=== PATIENT | female | born 1945 | race Caucasian/White ===

== ENCOUNTER → 2017-07-04 | Outpatient (REF) | payer MEDICARE | LOC: M LAB REF 17:20 | DX: C20 Malignant neoplasm of rectum (principal) | CPT/HCPCS: 82378 ==

== ENCOUNTER → 2017-07-04 | Outpatient (CLI) | payer MEDICARE | LOC: M ONCR 09:56 | DX: C20 Malignant neoplasm of rectum (principal) | CPT/HCPCS: 82378 ==

== ENCOUNTER → 2017-07-26 | Outpatient (REF) | payer MEDICARE ==
[2017-07-26 14:05] LABS: INR 1.05; PROTHROMBIN TIME 13.9 SECONDS (12.4-14.5)
== END ==
LOC: M LAB REF 13:34
DX: C20 Malignant neoplasm of rectum (principal)
CPT/HCPCS: 85610

== ENCOUNTER → 2017-08-06 | Outpatient (CLI) | payer MEDICARE ==
[~2017-08-06] MED LIST: LIDOCAINE 2% MDV 20 ML VIAL As Ordered; ceFAZolin 1GM INJ (J0690 PER 500MG) As Ordered
== END | disposition home or self-care (01) ==
LOC: M IRPRO 10:16
DX: C20 Malignant neoplasm of rectum (principal); C78.7 Secondary malignant neoplasm of liver and intrahepatic bile duct
CPT/HCPCS: 36561

== ENCOUNTER → 2017-08-28 | Outpatient (REF) | payer MEDICARE ==
[2017-08-30 10:50] LABS: CARCINOEMBRYONIC ANTIGEN 453.5 NG/ML (<2.5)
== END ==
LOC: M LAB REF 15:24
DX: C20 Malignant neoplasm of rectum (principal); C78.7 Secondary malignant neoplasm of liver and intrahepatic bile duct
CPT/HCPCS: 82378

== ENCOUNTER → 2017-11-04 | Outpatient (REF) | payer MEDICARE ==
[2017-11-05 08:21] LABS: CARCINOEMBRYONIC ANTIGEN 4.7 NG/ML (<2.5)
== END ==
LOC: M LAB REF 13:14
DX: C20 Malignant neoplasm of rectum (principal); C78.7 Secondary malignant neoplasm of liver and intrahepatic bile duct
CPT/HCPCS: 82378

== ENCOUNTER → 2017-11-18 | Outpatient (REF) | payer MEDICARE ==
[2017-11-20 07:32] LABS: CARCINOEMBRYONIC ANTIGEN 3.5 NG/ML (<2.5)
== END ==
LOC: M LAB REF 13:49
DX: C20 Malignant neoplasm of rectum (principal)
CPT/HCPCS: 82378

== ENCOUNTER → 2018-02-20 | Outpatient (CLI) | payer MEDICARE | LOC: M ONCR 12:56 | DX: C21.8 Malignant neoplasm of overlapping sites of rectum, anus and anal canal (principal) | CPT/HCPCS: G0463 ==

== ENCOUNTER → 2018-03-24 | Outpatient (RCR) | payer MEDICARE ==
[2018-02-26 13:19] LABS: HEMATOCRIT 38.3 % (36.0-47.0); HEMOGLOBIN 12.2 g/dl (12.0-15.5); MEAN CORPUSCULAR HEMOGLOBIN 30.3 pg (27.0-33.0); MEAN CORPUSCULAR HGB CONC 31.9 g/dl (32.0-36.5); MEAN CORPUSCULAR VOLUME 95.3 fl (80.0-96.0); PLATELET COUNT, AUTOMATED 218 10^3/uL (150-450); RED BLOOD COUNT 4.02 10^6/uL (4.00-5.40); WHITE BLOOD COUNT 4.6 10^3/uL (4.0-10.0)
--- NOTE | 2018-02-28 10:39 | RADONC ---
RADIATION ONCOLOGY SIMULATION NOTE DATE: 02/26/2018 CHART NUMBER: [id number] Ms. Lin was taken to the CT scan for CT simulation of her rectal field. CT was accomplished without difficulty or discomfort. Radiation treatment planning is underway and radiation treatments will begin subsequently. An immobilization device was created and will be used throughout the course of treatment. It was created without difficulty or discomfort. I was physically present throughout the course CT simulation.
--- NOTE | 2018-03-11 08:06 | RADONC ---
RADIATION ONCOLOGY PROGRESS NOTE DATE: 03/10/2018 CHART #: [id number] Ms. Lin is presently at a dose of 900 cGy to her rectum and is tolerating treatments quite well at this point with no complaints related to her radiation therapy. She is having no rectal or bone pain. REVIEW OF SYSTEMS: The patient's review of systems is noncontributory. Denies nausea, vomiting, fevers, chills, night sweats, diplopia, headaches, anxiety or depression, anorexia, weight loss, visual disturbances, chest pain, urinary or bowel difficulties, bone pain, or neurological problems. PHYSICAL EXAMINATION: The patient's skin is in excellent condition with no evidence of radiation change present. There is no moist or dry desquamation. The remainder of her physical exam remains unchanged. Ms. Lin is tolerating treatments quite well and radiation will continue as scheduled.
--- NOTE | 2018-03-21 12:23 | RADONC ---
RADIATION ONCOLOGY NOTE DATE: 03/19/2018 CHART #: [id number] DIAGNOSIS: Rectal cancer. STAGE: IV, [id number]. Miss Lin with a diagnosis of rectal cancer is currently receiving local regional radiotherapy and her dose to date is 1800 cGy of an anticipated 4500 cGy. She appears to be tolerating her radiotherapy reasonably well, although over the last several days she claims that she has experienced increased rectal discharge. On occasions the rectal discharge is black and she did call her affiliated physician, Dr. Mckenzie, for advice. She claims that the frequent bowel movements which she is now experiencing have decreased some with taking Imodium and instead of black stool she is now having more brownish stools. She does not complain of any skin issues and denies nausea or vomiting. The remainder of the review of systems is virtually noncontributory and she denies any anxiety, depression, anorexia, weight loss, or visual disturbances. PHYSICAL EXAMINATION: The skin within the irradiated volume shows no evidence of erythema and certainly no focal desquamation. There is no palpable peripheral lymphadenopathy. The remainder of the physical examination is unchanged. IMPRESSION: Tolerating therapy well with increased frequency of defecation with on several occasions the discharge blackened. PLAN: Continue using the Imodium on a p.r.n. basis as per the advice of Dr. Culver.
[~2018-03-24] MED LIST changes: +ACET65TA OR; +ASPI81TA83 OR; +ATEN50TA2 OR; +ATEN50TA2 PO; +IBUP200C25 PO; +LEVS0.123 PO; -LIDOCAINE 2% MDV 20 ML VIAL As Ordered; +LOMO2.5T PO; +OXYC-517 PO; +PERC7.5T8 OR; +ZOFR8TAB24 PO; -ceFAZolin 1GM INJ (J0690 PER 500MG) As Ordered
--- NOTE | 2018-03-26 14:11 | RADONC ---
RADIATION ONCOLOGY PROGRESS NOTE DATE: 03/24/2018 CHART NUMBER: [id number] PROGRESS NOTE: Ms. Lin is presently at a dose of 2160 cGy to her rectum and overall is tolerating her treatments with some discomfort. She reports some rectal pressure. She has also had some episodes of loose bowel movements. She did take two Imodium, which cause constipation, and she does not wish to repeat that. She has no urinary problems or other difficulties at this time. REVIEW OF SYSTEMS: The patient's review of systems is positive for rectal pressure and discomfort but is otherwise noncontributory. Denies nausea, vomiting, fevers, chills, night sweats, diplopia, headaches, anxiety or depression, anorexia, weight loss, visual disturbances, chest pain, urinary or bowel difficulties, bone pain, or neurological problems. PHYSICAL EXAMINATION: The patient's skin overall is in good condition with no evidence of moist or dry desquamation. The remainder of physical exam remains unchanged. Ms. Lin is tolerating her treatments with some discomfort and radiation will continue as scheduled. I have offered to give her a short treatment break if she wishes. edited: 03/26/2018 1433 tkf MTDD
== END ==
LOC: M ONCR 02-26 12:59
PROVIDERS: ATTEND Radiology Radiation Oncology
DX: C20 Malignant neoplasm of rectum (principal)

== ENCOUNTER 2018-04-22 14:15 | Outpatient (RCR) | payer MEDICARE ==
--- NOTE | 2018-04-08 07:27 | RADONC ---
RADIATION ONCOLOGY PROGRESS NOTE DATE: 04/07/2018 CHART NUMBER: [id number] Ms. Lin is presently at a dose of 3060 cGy to her rectum and overall is tolerating her treatments fairly well. She continues to have unusual GI problems with loose bowel movements versus diarrhea but they appear to have improved significantly. She is no longer taking Xeloda. The patient's review of systems are basically unchanged with some unusual changes in her bowel movements. On physical exam or skin is in good condition with no evidence of moist or dry desquamation. The remainder of her physical exam remains unchanged. Ms. Lin is tolerating treatments quite well and radiation will continue as scheduled.
--- NOTE | 2018-04-15 11:57 | RADONC ---
RADIATION ONCOLOGY PROGRESS NOTE DATE: CHART NUMBER: [id number] Ms. Lin came in today for reevaluation. She is thus far at a dose of 3420 cGy and was last treated on 04/09/2017. The patient reports that she is now on Lomotil and continues to have explosive uncontrolled diarrhea. I reviewed her blood tests and electrolytes and they are generally within acceptable limits and stable over the past several weeks. She reports that her stools are foul-smelling as well. She has not taken any Xeloda in over 2 weeks. At this point, I am now ordering a GI panel to evaluate for Clostridium (C.) difficile and other issues. She remains at rest from radiation at this point. I have recommended that she does not restart Xeloda until we get to the bottom of what is going on. The patient's stool sample was quite foul smelling and overall rather nasty. We await the results of this study. In the meantime, the patient is coming back to us on for reevaluation once again.
--- NOTE | 2018-04-21 15:27 | RADONC ---
RADIATION ONCOLOGY PROGRESS NOTE: DATE: 04/21/2018 CHART NUMBER: [id number] Ms. Lin had thus far been at a dose of 3420 cGy and was last treated on 04/09/2017. The patient was placed on rest for continued complaints of diarrhea. We ordered a GI panel which was done on 04/14/2018 and was negative for multiple studies. The sample however was quite foul smelling and looked nasty. The patient came in today complaining of continued diarrhea. She has now been off chemotherapy for weeks and has had multiple breaks in her radiation. I ordered another stool sample to be taken today and we will try again. In addition, I have instructed the patient she must contact her primary care physician since this diarrhea is outside my scope of practice. I have also asked her to contact her medical oncologist and discuss this as well. At this point, the patient only has six treatments or so left and I have told her either she needs to finish this up or we cancelled treatment. This is palliative in nature and we do not wish to be causing her problems. I do not believe this local radiation to her rectum is causing all of this, especially after personally seeing the patient's stool sample. This is not the normal appearance for any radiation induced issues. The patient has agreed to complete her last few treatments so that future palliative surgery can be scheduled in approximately 2 months. She is continuing to withhold her Xeloda chemotherapy. Therefore, we are treating the patient today and we will continue to follow her closely. Once again I have ordered a new stool sample and she will be followed by her primary care physician and medical oncologist. I suspect if this is related to her treatments, it would be closely related to her systemic therapy rather than her local radiation field.
== END 2018-04-24 ==
LOC: M ONCR 14:15
PROVIDERS: ATTEND Radiology Radiation Oncology
DX: C20 Malignant neoplasm of rectum (principal)

== ENCOUNTER 2018-05-01 14:25 | Outpatient (RCR) | payer MEDICARE ==
--- NOTE | 2018-04-29 13:32 | RADONC ---
RADIATION ONCOLOGY PROGRESS NOTE DATE: 04/28/2018 CHART NUMBER: [id number] Ms. Lin is presently at a dose of 3960 cGy to her rectum and is continuing to complain of diarrhea. She reports it is not as bad as it has been. The patient's review of systems is positive for loose bowel movements but is otherwise noncontributory. She denies nausea, vomiting, fevers, chills, night sweats, diplopia, headaches, anxiety or depression, anorexia, weight loss, visual disturbances, chest pain, urinary or bowel difficulties, bone pain, or neurological problems. PHYSICAL EXAMINATION: The patient's skin is in good condition with no evidence of moist or dry desquamation. The remainder of her physical exam remains unchanged. Ms. Lin is tolerating her treatments with diarrhea and has decided to continue radiation at this point. She has discontinued the systemic therapy. Radiation is approaching completion and she is then considering palliative colostomy.
[~2018-05-01 14:25] MED LIST changes: +HYOS0.1258 PO
[2018-05-01] MEDS ORDERED: LEVS0.123 PO (15:57)
--- NOTE | 2018-05-05 12:36 | RADONC ---
RADIATION ONCOLOGY TREATMENT SUMMARY DATE: 05/01/2018 CHART NUMBER: [id number] DIAGNOSIS: Rectal cancer. STAGE: IV, [id number]. ECOG PERFORMANCE STATUS: 0 TREATMENT SUMMARY: Ms. Orozco is a very pleasant 73-year-old white female with the diagnosis of stage IV, [id number], moderately differentiated adenocarcinoma of the rectum who presented to us for consideration of preoperative radiation therapy for palliative treatment of her rectal malignancy. We treated the patient to her rectum for a total dose of 4500 cGy delivered in 25 fractions of 180 cGy each over 57 elapsed days from 03/04/2018 through 05/01/2017. The patient's rectum was treated on a linear accelerator utilizing a 15 MV photon beam via 3-D conformal technique with left to right lateral and posterior marquez. We initially treated the patient with concomitant Xeloda systemic therapy. Unfortunately, the patient had a very difficult time with her radiation and had bowel issues including foul-smelling loose bowel movements and gas from the beginning of her treatment. The chemotherapy was discontinued and the patient ended up completing therapy radiation alone. Multiple stool samples were tested for various issues, including C diff and all were negative. I have set the patient up to see me again in 1 month for further followup. She is also scheduled to be seen by her surgeon for rectal resection in approximately 8 weeks or so. The patient has my cell phone number and has been instructed to call me if she has any issues in the meantime. cc: MD Jf Meyer MD Shirley Tuttle-Malone, DO Jack Alan Ziegler, MD
== END 2018-05-22 ==
LOC: M ONCR 14:25
PROVIDERS: ATTEND Radiology Radiation Oncology
DX: C20 Malignant neoplasm of rectum (principal)

== ENCOUNTER → 2018-06-04 | Outpatient (CLI) | payer MEDICARE ==
--- NOTE | 2018-06-09 10:25 | RADONC ---
RADIATION ONCOLOGY FOLLOWUP NOTE DATE: 06/04/2018 CHART #: [id number] DIAGNOSIS: Rectal cancer. STAGE: IV, [id number]. ECOG PERFORMANCE STATUS: 0. FOLLOWUP NOTE: Ms. Lin is a very pleasant 73-year-old white female with the diagnosis of a stage IV, [id number], moderately differentiated adenocarcinoma of the rectum who is presenting to us today for routine followup visit 1 month post completion of preoperative radiation therapy to her pelvis. The patient presents today reporting that generally she is doing better. She continues to have some loose bowel movements, but they have improved since completion of treatment. The patient reports that she is awaiting insurance authorization and has been seen by Dr. Martinez for scheduling of her surgery in [place]. The patient reports that his surgery should be sometime next month. She is also continuing her close followup with her other physicians. The patient's review of systems is positive for loose bowel movements but is otherwise noncontributory. Denies nausea, vomiting, fevers, chills, night sweats, diplopia, headaches, anxiety or depression, anorexia, weight loss, visual disturbances, chest pain, urinary or bowel difficulties, bone pain, or neurological problems. PHYSICAL EXAMINATION: The patient is a well-developed, well-nourished, 73-year-old female in no acute distress. HEENT exam is normocephalic, atraumatic. Extraocular movements are intact. There is no palpable cervical, supraclavicular, infraclavicular, axillary, or inguinal lymphadenopathy present. Lungs are clear to auscultation and percussion. Heart has a regular rate and rhythm. Abdomen is benign with no hepatosplenomegaly, masses, or tenderness. Rectal examination deferred at this time. Skeletal examination reveals no tenderness to pressure or percussion of the bony skeleton. Extremities reveal no clubbing, cyanosis, or edema. Neurologic exam is grossly intact, as is the remainder of the physical examination. ASSESSMENT: The patient is scheduled for surgery next week with Dr. Martinez. She will continue her close followup through that office. She will also continue her follow up with her medical oncologist and other physicians in the meantime. In light of this, I am discharging her from our followup except on a p.r.n. basis. cc: MD Jf Meyer MD Shirley Tuttle-Malone, DO Otoniel Ishmael Savannah, MD
== END ==
LOC: M ONCR 14:23
PROVIDERS: ATTEND Radiology Radiation Oncology
DX: C20 Malignant neoplasm of rectum (principal)

== ENCOUNTER 2019-04-21 07:30 | Inpatient (IN) | payer MEDICARE ==
--- NOTE | 2019-04-14 10:54 | HPE ---
DATE OF ADMISSION: 04/21/2019 ATTENDING PHYSICIAN: Dr. Isaiah Cruz ADMISSION DIAGNOSIS: Back pain and pain down her right leg. HISTORY: This is a pleasant 74-year-old female patient with progressively worsening back pain and pain down her right leg. She has failed to improve with conservative management to include physical therapy and activity modification. She has elected for surgery for continued symptoms. She has had a trial of NSAIDs. She has been consented by Dr. Cruz for right unilateral laminectomy at L3-4. X-rays and MRI are consistent with spinal stenosis, primary at L3-4. ALLERGIES: NO KNOWN DRUG ALLERGIES. CURRENT MEDICATIONS: Atenolol 50 mg 1 tablet at bedtime. MEDICAL CONDITIONS: Include bilateral knee osteoarthritis (OA), abdominal aortic aneurysm (AAA) that is treated with serial scans, glucose intolerance, hypertension, elevated lipids, neutropenia secondary to her prior chemotherapy, history of rectal adenocarcinoma, seasonal allergies, thyromegaly. PRIOR SURGERY: Includes bilateral tubal ligation, liver biopsy, colon resection, and colostomy placement. She also has had carpal tunnel release bilaterally. FAMILY HISTORY: Include hypertension, elevated cholesterol and arthritis. SOCIAL HISTORY: She does not smoke. She does not use alcohol. She is retired. REVIEW OF SYSTEMS: Denies fever or chills. Denies chest pain, shortness breath or cough. Denies difficulty breathing. Denies abdominal pain. Denies nausea or vomiting. Has persistent pain with weightbearing activities and walking that radiates mainly to her right ware. PHYSICAL EXAMINATION: Reveals an alert well-nourished, well-developed female patient. She ambulates with a normal gait. Her gait is not wide-based. Her mood and affect are appropriate. There is some mild tenderness along the lumbar spine without step offs or deviations. The skin around the back is intact. No erythema, edema or ecchymosis. Straight leg raise testing is negative. Deep tendon reflexes are absent at knees and absent at the ankles. No irritability with hip range of motion. Lungs are clear to auscultation without rales or wheeze. Heart: Regular rate and rhythm. Abdomen: Bowel sounds are present. Current blood pressure 115/69, respirations 16, pulse 72, height 5 feet 1 inch, weight 168 pounds, temperature 97.7. LABORATORY DATA: Include hemoglobin of 13.0, glucose 95, BUN 27, creatinine 0.7, sodium 141, potassium 4.4. CT of the thorax notable for no acute cardiac or pulmonary process noted. EKG sinus rhythm. IMPRESSION: Symptomatic lumbar spinal stenosis L3-4. PLAN: The patient has been consented by Dr. Cruz for a unilateral laminectomy at L3-4 to the right side. We reviewed the postoperative instructions to include, but not limited to being nothing by mouth (n.p.o.) after midnight, length of stay and the importance to stop her NSAIDs. She will follow her primary's recommendations for her medications. She is not currently taking any anticoagulants. She understands her preoperative instructions.
[~2019-04-21] VITALS: Ht 160 cm; Wt 74.8 kg
[~2019-04-21 07:30] MED LIST changes: +CelecoXIB (CeleBREX) 100 MG CAP PO ONE; +GABAPENTIN 300 MG CAP PO ONE; +LR 1,000 ML IV SCH; +PERCOCET 5MG/325MG TAB PO ONE; +ceFAZolin SOD 2 GM in IV 1 EA IV ONE
[2019-04-21] MEDS ORDERED: fentaNYL 250 MCG/5 ML INJECTION (J3010) As Ordered ONE (19:36)
[2019-04-21] MEDS ORDERED: propofoL 200 MG/20 ML VIAL As Ordered ONE (19:36)
[2019-04-21] MEDS ORDERED: LIDOCAINE 2% INJ 100 MG/5 ML SDV (FOR ANES.) As Ordered ONE (19:36)
[2019-04-21] MEDS ORDERED: MIDAZOLAM INJ 2 MG/2 ML VIAL (J2250) As Ordered ONE (19:37)
[2019-04-21] MEDS ORDERED: ROCURONIUM BROMIDE 50 MG/5 ML VIAL As Ordered ONE ×2 (19:37→21:07)
[2019-04-21] MEDS ORDERED: dexameTHASONE 4 MG/ML 1ML VIAL (J1100) As Ordered ONE (19:37)
[2019-04-21] MEDS ORDERED: BUPIVACAINE/EPIN 0.25% 30 ML VIAL As Ordered ONE (20:00)
[2019-04-21] MEDS ORDERED: THROMBIN SOLN 20,000 UNITS KIT As Ordered ONE (20:00)
[2019-04-21] MEDS ORDERED: BACITRACIN PWD 50,000 UNITS VIAL As Ordered ONE (20:00)
[2019-04-21] MEDS ORDERED: LACRILUBE (AKWA TEARS) OPHTH OINT 3.5 GM As Ordered ONE (20:27)
[2019-04-21] MEDS ORDERED: ePHEDrine SULFATE 25 MG/5 ML(5MG/ML) SYRINGE As Ordered ONE (20:28)
[2019-04-21] MEDS ORDERED: VASOPRESSIN INJ 20 UNITS/ML VIAL As Ordered ONE (20:37)
[2019-04-21] MEDS ORDERED: PHENYLEPHRINE INJ 10MG/ML VIAL (J2370) As Ordered ONE (20:58)
[2019-04-21] MEDS ORDERED: SUGAMMADEX SODIUM 500 MG/5 ML VIAL (BRIDION) As Ordered ONE (22:45)
[2019-04-21] MEDS ORDERED: ONDANSETRON 4MG/2ML VIAL (J2405) As Ordered ONE (22:45)
[2019-04-21] MEDS ORDERED: LR 1,000 ML IV SCH (23:45)
[2019-04-21] MEDS ORDERED: METOCLOPRAMIDE INJ 10MG/2ML VIAL (J2765) IV PRN (23:45)
[2019-04-21] MEDS ORDERED: oxyCODONE 5MG TAB PO PRN (23:45)
[2019-04-21] MEDS ORDERED: ONDANSETRON 4MG/2ML VIAL (J2405) IV PRN (23:45)
[2019-04-21] MEDS ORDERED: fentaNYL 100 MCG/2 ML INJECTION (J3010) IV PRN (23:45)
[2019-04-21] MEDS ORDERED: HYDROMORPHONE HCL 0.5 MG/ 0.5 ML SYRINGE (J1170 PER 1) IV PRN (23:45)
--- NOTE | 2019-04-21 23:53 | CR.PDOC ---
General Date of Consultation: Apr 21, 2019 Referring Provider: Isaiah Cruz MD Primary Care Physician: Ama Rush DO [facility] Attending Physician: TITA CALDWELL MD Consultation TIME OF SERVICE: 11:50 PM REASON FOR CONSULTATION: Perioperative care HISTORY OF PRESENT ILLNESS: This is a 74-year-old female who had a laminectomy today to manage progressively worsening chronic back pain that did not improve with conservative measures. I evaluated the patient in the post operative care unit. She reported that her back pain was well-controlled and she had no acute complaints. REVIEW OF SYSTEMS: 12 point review of systems negative except as listed in HPI PAST MEDICAL/ SURGICAL HISTORY: Status post L3-L4 laminectomy and April 21 Severe OA affecting both knees Chronic hypertension Pre-Diabetes Dyslipidemia AAA History of stage IV rectal cancer status post colectomy with colostomy placement status post bilateral tubal ligation. Status post carpal tunnel surgery bilaterally SOCIAL HISTORY: She doesn't smoke FAMILY HISTORY: Chronic hypertension. Dyslipidemia Arthritis ALLERGIES: Please see below. HOME MEDICATIONS: Please see below. PHYSICAL EXAMINATION: VITAL SIGNS: Please see below. GEN: well-nourished / well developed/ NAD INTEGUMENT: not flushed/ not jaundice / the post surgical incision is covered with clean and dry dressings HEENT: NCAT / lips acyanotic /mucus membranes moist and pink CVS: RRR/NMRG LUNGS: lungs are clear to auscultation bilaterally on room air ABDOMEN: Contour (flat) / she has a colostomy bag/ soft & not tender with palpation MSK/EXTREMITIES: range of motion intact in all 4 extremities NEURO: CN 2-12 are grossly intact / speech is not dysarthric PSYCH: alert and oriented to person place and time/ able to understand and fol low all commands LABORATORY DATA: N/A ASSESSMENT: Ms. Lin is a 74-year-old female with a past history of hypertension, rectal cancer, AAA, overweight, who is status post laminectomy for severe back pain. We were consulted for Perioperative care. PLAN: 1. Chronic hypertension. Plan: Continue atenolol 2 Chronic back pain status post laminectomy / OA Plan: Management per primary team. DVT prophylaxis SCDs Thank you for consulting us. We'll continue to follow this patient with you Vital Signs/I&O Vital Signs Date Time Temp Pulse Resp B/P (MAP) Pulse Ox O2 Delivery O2 Flow Rate FiO2 04/21/19 23:41 91 18 114/58 (76) 99 Room Air 04/21/19 23:26 96.7 Allergies Coded Allergies: No Known Allergies (Unverified , 04/08/19) Home Medications Scheduled Atenolol (Atenolol) 50 Mg Tab, 50 MG PO QPM, (Reported) Ibuprofen (Ibuprofen) 200 Mg Cap, 200 MG PO TIDP, (Reported) Scheduled PRN Oxycodone HCl (Oxycodone HCl) 5 Mg Tablet, 1-2 TABS PO Q4H PRN for PAIN, #20 TITA CALDWELL MD Apr 21, 2019 23:53
[2019-04-22] VITALS (8 sets, daily range): BP systolic 90–123; BP diastolic 50–62
[2019-04-22] MEDS ORDERED: PERCOCET 5MG/325MG TAB PO PRN ×2 (00:45→00:46)
[2019-04-22] MEDS ORDERED: PROMETHAZINE INJ 25 MG/ML VIAL (J2550) IV PRN (00:46)
[2019-04-22] MEDS ORDERED: D5W/LR 1,000 ML IV SCH (00:46)
[2019-04-22] MEDS ORDERED: ACETAMINOPHEN TAB 650MG DOSE (2X325MG) PO PRN (00:46)
[2019-04-22] MEDS ORDERED: ONDANSETRON 4MG/2ML VIAL (J2405) IV PRN (00:46)
[2019-04-22] MEDS ORDERED: HYDROMORPHONE HCL 0.5 MG/ 0.5 ML SYRINGE (J1170 PER 1) IV PRN ×2 (00:46)
[2019-04-22] MEDS: ceFAZolin SOD 1 GM in D5W MINI-BAG PLUS 50 ML IV SCH ×2 (02:51→08:48)
[2019-04-22] MEDS ORDERED: OXYC-517 PO (06:04)
[2019-04-22 07:12] LABS: HEMATOCRIT 33.4 % (36.0-47.0); HEMOGLOBIN 11.1 g/dl (12.0-15.5); MEAN CORPUSCULAR HEMOGLOBIN 31.3 pg (27.0-33.0); MEAN CORPUSCULAR HGB CONC 33.2 g/dl (32.0-36.5); MEAN CORPUSCULAR VOLUME 94.1 fl (80.0-96.0); PLATELET COUNT, AUTOMATED 160 10^3/uL (150-450); RED BLOOD COUNT 3.55 10^6/uL (4.00-5.40); WHITE BLOOD COUNT 5.1 10^3/uL (4.0-10.0)
[2019-04-22 07:41] LABS: BLOOD UREA NITROGEN 19 MG/DL (7-18); CALCIUM LEVEL 8.2 MG/DL (8.8-10.2); CARBON DIOXIDE LEVEL 28 MEQ/L (21-32); CHLORIDE LEVEL 107 MEQ/L (98-107); CREATININE FOR GFR 0.56 MG/DL (0.55-1.30); GLOMERULAR FILTRATION RATE > 60.0 (>39); GLUCOSE, FASTING 173 MG/DL (70-100); MAGNESIUM LEVEL 1.9 MG/DL (1.8-2.4); POTASSIUM SERUM 4.2 MEQ/L (3.5-5.1); SODIUM LEVEL 139 MEQ/L (136-145)
--- NOTE | 2019-04-22 12:19 | IPNPDOC ---
Date Seen The patient was seen on 04/22/19. Progress Note SUBJECTIVE: Patient seen and examined this morning. Denies of any pain or chest pain, shortness breath, nausea, vomiting, fevers, chills OBJECTIVE PHYSICAL EXAMINATION: VITAL SIGNS: Please see below. GENERAL: Pleasant 74 year old female laying in bed awake alert oriented speaking in complete sentences no acute distress HEENT: Moist mucous membranes no JVD CARDIOVASCULAR: S1 S2 regular no additional heart sounds appreciated. RESPIRATORY: Clear to auscultation bilaterally. ABDOMINAL: Bowel sounds present abdomen soft and nontender EXTREMITIES: No clubbing cyanosis or edema BACK: No back pain or tenderness NEUROLOGICAL: No gross focal deficits appreciated PSYCHOLOGICAL: Appropriate LABORATORY DATA, MICROBIOLOGY: Please see below. ASSESSMENT AND PLAN: This is a 74-year-old female presented with back pain. PROBLEMS: 1. Symptomatic lumbar spinal stenosis L3-4.s./p laminectomy of L3-L4 -Surgery 04/21/2019-Dr. Cruz -Pain management per Ortho 2. Chronic Hypertension c/w atentlol w/ hold perimeters. DVT prophylaxis: SCDs DISPOSITION: Discharge per primary team VS, I&O, 24H, [facility] Vital Signs/I&O Vital Signs Date Time Temp Pulse Resp B/P (MAP) Pulse Ox O2 Delivery O2 Flow Rate FiO2 04/22/19 10:00 97.9 65 15 118/57 (77) 98 Room Air 04/22/19 00:45 1.0 I&O- Last 24 Hours up to 6 AM 04/22/19 06:00 Intake Total 1950 ml Output Total 525 ml Balance 1425 ml Laboratory Data 24H LABS Laboratory Tests 2 04/22/19 06:51: Nucleated Red Blood Cells % (auto) 0.0, Anion Gap 4L, Glomerular Filtration Rate > 60.0, Calcium Level 8.2L, Magnesium Level 1.9 CBC/BMP Laboratory Tests 04/22/19 06:51 Attending Note I personally saw and evaluated the patient. I agree with the findings and the plan of care documented above in the resident's note. DIOMEDES FREEMAN DO Apr 22, 2019 12:19 GENARO MOBLEY MD Apr 23, 2019 12:33
--- NOTE | 2019-04-22 14:03 | RO ---
DATE OF PROCEDURE: 04/21/2019 PREOPERATIVE DIAGNOSES: Lumbar spinal stenosis with neurogenic claudication affecting the right lower extremity more the left lower extremity at L3-4. POSTOPERATIVE DIAGNOSES: Lumbar spinal stenosis with neurogenic claudication affecting the right lower extremity more the left lower extremity at L3-4. INTRAOPERATIVE FINDINGS: Include severe central lateral recess spinal stenosis at L3-4, small amount of disk material was retrieved from the right lateral recess as well. SURGEON: Isaiah Cruz MD FARM MORTGAGE AGENT: JOSE MIGUEL Stone and medical student Kim Stock was present in the capacity of an observant during the procedure. ANESTHESIA: General endotracheal. ESTIMATED BLOOD LOSS: Less than 60. COMPLICATIONS: None. INDICATIONS: Discomfort that is intolerable rating down the right lower extremity, MRI evidence of severe spinal stenosis at the L3-4 level due to a combination of facet arthropathy, ligamentum flavum, hypertrophy and bulging and perhaps extruded disk. The patient has elected for operative intervention at this point. Consent was reviewed in detail with the patient including a david discussion of pathology involved, procedure proposed, alternatives, including doing nothing, and risks including, but not that to, pain, failure, infection, bleeding blood loss, incomplete relief of symptoms, need for additional surgery and other issues. The patient agrees to proceed with surgery. OPERATIVE COURSE: Identified in the holding area, brought to the operating room. Once anesthesia was administered, she was positioned in the prone position on the Nas frame for exposure. Care was taken to protect her colostomy site. Axillary rolls were utilized. Once I and the sales recruiter were comfortable with the patient's positioning, she was then sterilely prepped, draped in the usual fashion for exposure. Next, I began the procedure using loupe magnification and a headlamp. Time-out was accomplished. A cross-table lateral was taken across the spinal needle to verify our level 3-4. Next, the incision was made with the 10 blade, developed down through skin and subcuticular tissues to the posterior lumbar fascia. Posterior lumbar fascia was reflected off the spinous process of three and four down to the L3-4 interspace. A divot was drilled in the lamina of three and a second cross-table lateral x-ray was taken again to verify our level. Next, at this point, the dissection was continued superiorly and inferiorly to expose lamina of 4 and 5. Next, retractors were placed. Next, irrigation was accomplished. Next, my loupe magnification and headlamp were removed. The operating microscope was brought in for the remainder of the procedure. Mr. Lopez looked through oculars on the left, I on the right. Next, the high-speed bur was utilized to implement a right unilateral laminectomy of L3, undercutting the spinous processes of L3, extending superiorly through the bare area of 3, protecting the pars interarticularis of 3 and as much of the facette complex as possible, then inferiorly into the top of the L4 lamina to the bare area of 4. Next, once this was accomplished, I elevated ligamentum flavum using a Karlan curette and then removed ligamentum flavum using pituitaries and Kerrisons. The midline laminectomy was accomplished removing hypertrophied ligamentum flavum, which was producing significant spinal stenosis. I then decompressed the lateral recess on the patient's right side, including using a curved Kerrison and curved curettes. Then I decompressed the lateral recess on the patient's left side, reaching across the horizon decompressing the subarticular space using Kerrisons and curettes. Next, once this was accomplished, I swept the thecal sac medially with a suction . There was a bulging disk annulus complex at 3-4, some small disk material was removed but there is not a large disk extrusion. I explored inferiorly and I only retrieved a small amount of disk material with Peter pituitaries. I probed deep to the dura to make sure that there were no retrievable extruded fragments. I probed on the right at the neural foramina and retrieved a small fragment. Next, irrigation was then accomplished. The operating microscope was rolled out. After I inspected for no CSF leaks and no bleeding, all thrombin Gelfoam was removed at the conclusion of the case. Retractors were removed. Posterior lumbar fascia was reapproximated with interrupted stitch. Deep dermis with interrupted stitch. Pernio dressing was utilized on skin. The patient was log-rolled to the hospital bed, extubated, moved to the recovery room in good condition. For further details please refer to medical record. Mr. Lopez participated in this case in capacity of surgical first assistant. RETAIL SOLAR ADVISOR Thank you
[2019-04-22] MEDS ORDERED: atenoloL 50 MG TAB PO SCH (21:00)
--- NOTE | 2019-04-23 20:48 | REP ---
PORTABLE LATERAL LUMBAR SPINE: Two lateral portable views of the lumbar spine are performed. First image shows a metallic probe posteriorly. It is at the level of the L3-4 disc. The second image shows a different metallic probe at the same L3-4 disc level. Vertebral bodies are normal in height and well aligned with diffuse disc space narrowing at all levels. Electronically Signed by Stevo Levy MD 04/24/2019 12:50 P
== END 2019-04-22 12:25 | disposition home or self-care (01) | DRG 520 ==
LOC: M OR 15:48 → M MS5PR 04-22 00:09
PROVIDERS: ADMIT Orthopaedic Surgery; ATTEND Orthopaedic Surgery
PROC: 00NY0ZZ Release Lumbar Spinal Cord, Open Approach (ICD-10-PCS; 2019-04-21)
PROC: 0SB20ZZ Excision of Lumbar Vertebral Disc, Open Approach (ICD-10-PCS; principal; 2019-04-21 16:35)
DX: M48.061 Spinal stenosis, lumbar region without neurogenic claudication (principal); M17.0 Bilateral primary osteoarthritis of knee; E78.5 Hyperlipidemia, unspecified; I71.4 Abdominal aortic aneurysm, without rupture; I10 Essential (primary) hypertension; R73.03 Prediabetes; J30.2 Other seasonal allergic rhinitis; E01.0 Iodine-deficiency related diffuse (endemic) goiter; Z92.21 Personal history of antineoplastic chemotherapy; Z90.49 Acquired absence of other specified parts of digestive tract; Z79.899 Other long term (current) drug therapy; Z85.048 Personal history of other malignant neoplasm of rectum, rectosigmoid junction, and anus; Z93.3 Colostomy status

== ENCOUNTER → 2021-07-07 | Outpatient (CLI) | payer MEDICARE ==
[~2021-07-07] MED LIST changes: -CelecoXIB (CeleBREX) 100 MG CAP PO ONE; -GABAPENTIN 300 MG CAP PO ONE; +LIDOCAINE 1% MDV 20ML VIAL As Ordered ONE; -LR 1,000 ML IV SCH; -PERCOCET 5MG/325MG TAB PO ONE; -ceFAZolin SOD 2 GM in IV 1 EA IV ONE
[2021-07-07 12:05] VITALS: BP 140/66
== END ==
LOC: M IRPRO 11:14
PROVIDERS: ATTEND Otolaryngology
DX: D34 Benign neoplasm of thyroid gland (principal)

== ENCOUNTER → 2022-09-28 | Outpatient (CLI) | payer MEDICARE ==
[~2022-09-28] MED LIST changes: -LIDOCAINE 1% MDV 20ML VIAL As Ordered ONE
[2022-09-28 13:54] LABS: BASO % 0.6 % (0.0-1.0); EOS # 0.4 10^3/uL (0.0-0.5); EOS % 7.1 % (0.0-3.0); HEMATOCRIT 43.8 % (36.0-47.0); HEMOGLOBIN 14.1 g/dl (12.0-15.5); LYMPH # 1.2 10^3/uL (1.5-5.0); LYMPH % 24.5 % (24.0-44.0); MEAN CORPUSCULAR HEMOGLOBIN 30.2 pg (27.0-33.0); MEAN CORPUSCULAR HGB CONC 32.2 g/dl (32.0-36.5); MEAN CORPUSCULAR VOLUME 93.8 fl (80.0-96.0); MONO # 0.4 10^3/uL (0.0-0.8); MONO % 7.3 % (2.0-8.0); NEUTROPHILS % 60.3 % (36.0-66.0); PLATELET COUNT, AUTOMATED 235 10^3/uL (150-450); RED BLOOD COUNT 4.67 10^6/uL (4.00-5.40); WHITE BLOOD COUNT 4.9 10^3/uL (4.0-10.0)
[2022-09-28 13:55] LABS: APPEARANCE, URINE HAZY (CLEAR); BACTERIA, URINE AUTO NEGATIVE (NEGATIVE); BILIRUBIN, URINE AUTO NEGATIVE (NEGATIVE); BLOOD, URINE BLOOD 1+ (NEGATIVE); COLOR, URINE YELLOW (YELLOW); GLUCOSE, URINE (UA) AUTO NEGATIVE (NEGATIVE); KETONE, URINE AUTO NEGATIVE (NEGATIVE); LEUKOCYTE ESTERASE, URINE AUTO 3+ (NEGATIVE); NITRITE, URINE AUTO NEGATIVE (NEGATIVE); PROTEIN, URINE AUTO NEGATIVE (NEGATIVE); RBC, URINE AUTO 4 /HPF (0-3); SQUAMOUS EPITHELIAL CELL UR AU 2 /HPF (0-6); UROBILINOGEN, URINE AUTO 0.2 mg/dL (0.0-2.0); WBC, URINE AUTO 39 /HPF (0-3)
[2022-09-28 14:07] LABS: PROTHROMBIN TIME 13.4 SECONDS (12.5-14.5)
[2022-09-28 14:25] LABS: ALBUMIN 3.7 G/DL (3.2-5.2); ALKALINE PHOSPHATASE 62 U/L (46-116); ALT/SGPT < 9 U/L (7.0-40); AST/SGOT < 8 U/L (<34); BILIRUBIN,TOTAL 1.2 MG/DL (0.3-1.2); BLOOD UREA NITROGEN 21 MG/DL (9-23); CARBON DIOXIDE LEVEL 31 MMOL/L (20-31); CHLORIDE LEVEL 103 MMOL/L (98-107); CREATININE FOR GFR 0.61 MG/DL (0.55-1.30); GLOMERULAR FILTRATION RATE > 60.0 (>39); GLUCOSE, FASTING 93 MG/DL (74-106); POTASSIUM SERUM 4.5 MMOL/L (3.5-5.1); SODIUM LEVEL 139 MMOL/L (136-145); TOTAL 25(OH) VITAMIN D 26.9 NG/ML (20.0-100.0)
== END ==
LOC: M PLALAB 09:56
PROVIDERS: ATTEND Orthopaedic Surgery
DX: M19.011 Primary osteoarthritis, right shoulder (principal); Z79.899 Other long term (current) drug therapy